=== PATIENT | male | born 1990 | race Caucasian/White ===

== ENCOUNTER 2017-08-13 21:34 | Emergency (ER) | payer MEDICAID ==
[~2017-08-13] VITALS: Ht 177.8 cm; Wt 127.0 kg
[2017-08-13 21:46] VITALS: Ht 177.8 cm; Wt 127.0 kg
[2017-08-13 23:44] VITALS: BP 157/82
== END 2017-08-13 23:44 | disposition home or self-care (01) ==
LOC: ED 21:34
DX: M10.9 Gout, unspecified (principal); Z90.89 Acquired absence of other organs
CPT/HCPCS: 36415; J1885

== ENCOUNTER 2017-08-21 18:10 | Emergency (ER) | payer MEDICAID ==
[~2017-08-21] VITALS: Ht 177.8 cm; Wt 136.1 kg
[2017-08-21 18:23] VITALS: Ht 177.8 cm; Wt 136.1 kg
[2017-08-21 21:34] VITALS: BP 129/75
== END 2017-08-21 21:34 | disposition home or self-care (01) ==
LOC: ED 18:10
DX: M25.571 Pain in right ankle and joints of right foot (principal)
CPT/HCPCS: J1885

== ENCOUNTER 2017-09-19 08:27 | Emergency (ER) | payer MEDICAID ==
[~2017-09-19] VITALS: Ht 177.8 cm; Wt 142.1 kg
[2017-09-19 10:23] VITALS: BP 144/77
== END 2017-09-19 10:23 | disposition home or self-care (01) ==
LOC: ED 08:27
DX: R10.13 Epigastric pain (principal); R19.7 Diarrhea, unspecified; M10.9 Gout, unspecified

== ENCOUNTER 2017-11-08 17:46 | Emergency (ER) | payer MEDICAID ==
[~2017-11-08] VITALS: Ht 177.8 cm; Wt 142.9 kg
[2017-11-08 18:14] VITALS: Ht 177.8 cm; Wt 142.9 kg
[2017-11-08 19:55] VITALS: BP 142/93
== END 2017-11-08 19:55 | disposition home or self-care (01) ==
LOC: ED 17:46
DX: T23.272A Burn of second degree of left wrist, initial encounter (principal); T31.0 Burns involving less than 10% of body surface; X12.XXXA Contact with other hot fluids, initial encounter; Y93.89 Activity, other specified; Y99.8 Other external cause status; Y92.89 Other specified places as the place of occurrence of the external cause

== ENCOUNTER 2017-11-10 21:14 | Emergency (ER) | payer MEDICAID ==
[~2017-11-10] VITALS: Ht 177.8 cm; Wt 141.5 kg
[2017-11-10 22:12] VITALS: BP 110/64
== END 2017-11-10 22:12 | disposition home or self-care (01) ==
LOC: ED 21:14
DX: T23.272D Burn of second degree of left wrist, subsequent encounter (principal); T31.0 Burns involving less than 10% of body surface; X08.8XXD Exposure to other specified smoke, fire and flames, subsequent encounter

== ENCOUNTER 2018-01-31 17:49 | Emergency (ER) | payer MEDICAID ==
[~2018-01-31] VITALS: Ht 177.8 cm; Wt 147.9 kg
[2018-01-31 17:51] VITALS: Ht 177.8 cm; Wt 147.9 kg
[2018-01-31 18:35] LABS: microscopic required? NO
[2018-01-31 18:42] LABS: UA SPECIFIC GRAVITY >=1.030 (1.005-1.035); urine erythrocyte NEGATIVE (NEGATIVE)
[2018-01-31 18:43] LABS: BASOPHIL % 0.7 % (0-2); PLATELET COUNT 262 x10^3mcL (130-400); RED CELL DISTRIBUTION WIDTH 13.6 % (11.5-14.5)
[2018-01-31 18:53] LABS: CALCIUM 8.7 mg/dL (8.5-10.1); CARBON DIOXIDE 30.2 mmol/L (21-32); CHLORIDE SERUM 105 mmol/L (98-107); GFR1 > 60 mL/min; GLUCOSE SERUM 117 mg/dL (74-106); SODIUM SERUM 141 mmol/L (136-145)
[2018-01-31 18:58] LABS: ALBUMIN 3.6 g/dL (3.4-5.0); AMYLASE 58 U/L (25-115); BILIRUBIN TOTAL 0.29 mg/dL (0.20-1.00); LIPASE 142 IU/L (73-393); TOTAL PROTEIN, SERUM 7.8 g/dL (6.4-8.2)
[2018-01-31 18:59] LABS: ALKALINE PHOSPHATASE 114 U/L (46-116)
[2018-01-31 19:16] LABS: ALT/SGPT 143 U/L (16-63); AST/SGOT 77 U/L (15-37)
[2018-01-31 19:26] VITALS: BP 129/73
== END 2018-01-31 19:26 | disposition home or self-care (01) ==
LOC: ED 17:49
PROVIDERS: Emergency Medicine
DX: R10.13 Epigastric pain (principal)
CPT/HCPCS: J3490; Q0092

== ENCOUNTER 2018-07-18 08:01 | Emergency (ER) | payer MEDICAID ==
[~2018-07-18] VITALS: Ht 177.8 cm; Wt 132.4 kg
[2018-07-18 08:12] VITALS: Ht 177.8 cm; Wt 132.4 kg
[2018-07-18 10:28] VITALS: BP 161/91
== END 2018-07-18 10:26 | disposition home or self-care (01) ==
LOC: ED 08:01
DX: R10.13 Epigastric pain (principal); R19.7 Diarrhea, unspecified; K21.9 Gastro-esophageal reflux disease without esophagitis; M10.9 Gout, unspecified; Z90.89 Acquired absence of other organs

== ENCOUNTER 2018-07-20 21:25 | Emergency (ER) | payer MEDICAID ==
[~2018-07-20] VITALS: Ht 177.8 cm; Wt 133.8 kg
[2018-07-20 21:32] VITALS: Ht 177.8 cm; Wt 133.8 kg
[2018-07-20 22:05] LABS: BASOPHIL % 0.5 % (0-2); PLATELET COUNT 263 x10^3mcL (130-400); RED CELL DISTRIBUTION WIDTH 12.8 % (11.5-14.5)
[2018-07-20 22:14] LABS: CALCIUM 8.4 mg/dL (8.5-10.1); CARBON DIOXIDE 30.1 mmol/L (21-32); CHLORIDE SERUM 109 mmol/L (98-107); GFR1 > 60 mL/min; GLUCOSE SERUM 95 mg/dL (74-106); POTASSIUM SERUM 3.9 mmol/L (3.5-5.1); SODIUM SERUM 143 mmol/L (136-145)
[2018-07-20 22:18] LABS: ALBUMIN 3.5 g/dL (3.4-5.0); ALKALINE PHOSPHATASE 112 U/L (46-116); ALT/SGPT 94 U/L (16-63); AST/SGOT 30 U/L (15-37); BILIRUBIN TOTAL 0.16 mg/dL (0.20-1.00); LIPASE 201 IU/L (73-393); TOTAL PROTEIN, SERUM 7.4 g/dL (6.4-8.2)
[2018-07-20 22:41] VITALS: BP 139/73
== END 2018-07-20 23:09 | disposition home or self-care (01) ==
LOC: ED 21:25
PROVIDERS: Emergency Medicine
DX: K52.9 Noninfective gastroenteritis and colitis, unspecified (principal); K57.90 Diverticulosis of intestine, part unspecified, without perforation or abscess without bleeding; M10.9 Gout, unspecified; K21.9 Gastro-esophageal reflux disease without esophagitis; F17.210 Nicotine dependence, cigarettes, uncomplicated
CPT/HCPCS: 36415; J2405; J7030

== ENCOUNTER 2018-08-02 07:23 | Emergency (ER) | payer MEDICAID ==
[~2018-08-02] VITALS: Ht 177.8 cm; Wt 137.0 kg
[2018-08-02 07:26] VITALS: Ht 177.8 cm; Wt 137.0 kg
[2018-08-02 08:27] LABS: PLATELET COUNT 295 x10^3mcL (130-400); RED CELL DISTRIBUTION WIDTH 14.1 % (11.5-14.5)
[2018-08-02 08:31] LABS: BASOPHIL % 0 % (0-2)
[2018-08-02 08:33] LABS: CALCIUM 8.9 mg/dL (8.5-10.1); CARBON DIOXIDE 29.9 mmol/L (21-32); CHLORIDE SERUM 103 mmol/L (98-107); GFR1 > 60 mL/min; GLUCOSE SERUM 119 mg/dL (74-106); POTASSIUM SERUM 4.8 mmol/L (3.5-5.1); SODIUM SERUM 140 mmol/L (136-145)
[2018-08-02 08:38] LABS: ALBUMIN 3.8 g/dL (3.4-5.0); ALKALINE PHOSPHATASE 97 U/L (46-116); ALT/SGPT 83 U/L (16-63); AST/SGOT 54 U/L (15-37); BILIRUBIN TOTAL 0.28 mg/dL (0.20-1.00); LIPASE 100 IU/L (73-393)
[2018-08-02 08:40] LABS: TOTAL PROTEIN, SERUM 8.6 g/dL (6.4-8.2)
[2018-08-02 10:27] VITALS: BP 129/71
== END 2018-08-02 10:27 | disposition home or self-care (01) ==
LOC: ED 07:23
PROVIDERS: Emergency Medicine
DX: K57.92 Diverticulitis of intestine, part unspecified, without perforation or abscess without bleeding (principal); K21.9 Gastro-esophageal reflux disease without esophagitis
CPT/HCPCS: J2405; J7030

== ENCOUNTER 2019-01-20 20:22 | Emergency (ER) | payer MEDICAID ==
[~2019-01-20] VITALS: Ht 177.8 cm; Wt 154.2 kg
[2019-01-20 20:39] VITALS: Ht 177.8 cm; Wt 154.2 kg
[2019-01-20 21:39] VITALS: BP 105/76
== END 2019-01-20 21:39 | disposition home or self-care (01) ==
LOC: ED 20:22
DX: G57.12 Meralgia paresthetica, left lower limb (principal); M10.9 Gout, unspecified; K21.9 Gastro-esophageal reflux disease without esophagitis

== ENCOUNTER 2020-07-22 21:14 | Emergency (ER) | payer MEDICAID ==
[~2020-07-22] VITALS: Ht 177.8 cm; Wt 145.1 kg
[2020-07-22 21:32] VITALS: Ht 177.8 cm; Wt 145.1 kg
== END 2020-07-22 21:58 | disposition home or self-care (01) ==
LOC: ED 21:14
DX: S61.211A Laceration without foreign body of left index finger without damage to nail, initial encounter (principal); M10.9 Gout, unspecified; W26.0XXA Contact with knife, initial encounter; Y93.89 Activity, other specified; Y92.89 Other specified places as the place of occurrence of the external cause; Y99.8 Other external cause status

== ENCOUNTER 2020-09-22 09:46 | Emergency (ER) | payer MEDICAID ==
[~2020-09-22] VITALS: Ht 177.8 cm; Wt 163.3 kg
[2020-09-22 10:02] VITALS: Ht 177.8 cm; Wt 163.3 kg
[2020-09-22 10:42] VITALS: BP 138/83
== END 2020-09-22 10:52 | disposition home or self-care (01) ==
LOC: ED 09:46
DX: M10.9 Gout, unspecified (principal); Z76.0 Encounter for issue of repeat prescription